=== PATIENT | female | born 1975 | race Caucasian/White ===

== ENCOUNTER 2024-05-05 09:16 | Outpatient (CLI) | payer SELFPAY ==
--- NOTE | 2024-05-05 09:22 | BI_ITS ---
MAMMOGRAPHY - BILATERAL DIAGNOSTIC REASON FOR EXAM: Female, 49 years old. Palpable lump in the right axillary region. PERTINENT HISTORY: Non-contributory. TECHNIQUE: Digital bilateral breast cassie (3D mammographic acquisition) in the CC and MLO projections. 2-D mediolateral oblique (MLO) and craniocaudad (CC) views of both breasts were obtained. CAD: Full Field Digital Mammography with Computer Added Detection was performed. COMPARISON: Comparison is made with prior outside examination dated April 14, 2019. FINDINGS: Breast Composition: The breasts are heterogeneously dense, which may obscure small masses. There are no dominant masses or suspicious calcifications. Stable fat-containing right axillary lymph node. No other significant abnormalities are identified. There has been no significant change since the prior study. BI/DIAG MAMM W/CAD, BILAT IMPRESSION: Stable bilateral diagnostic mammogram. With the patient''s history of a palpable lump in the right axilla, correlation with ultrasound is recommended. ASSESSMENT CATEGORY: BIRADS Category 0: Incomplete. Need additional imaging evaluation. A letter regarding these results will be sent to the patient by the facility within 30 days. Approximately 10% of breast cancers are not detected by mammography. A normal mammogram should not delay biopsy of a clinically suspicious abnormality. Electronically Signed: Elton Gamble MD at 10:34 EDT ,
--- NOTE | 2024-05-05 09:22 | US_ITS ---
STUDY: ULTRASOUND BREAST - RIGHT REASON FOR EXAM: Female, 49 years old. Right axillary palpable lump. TECHNIQUE: Axial and longitudinal images of the RIGHT breast were performed with a high resolution ultrasound transducer. # OF IMAGES: 52 COMPARISON: Comparison is made with prior mammogram done earlier in the day. FINDINGS: RIGHT Breast: The far lateral aspect of the right breast was obtained. The palpable lump corresponds to a 1.9 cm x 2.1 cm x 0.7 cm heterogeneous solid lesion. This most likely represents a lipoma. Biopsy recommended for further evaluation. US/Breast Limited Unilateral IMPRESSION: The palpable lump corresponds to a 1.9 cm x 2.1 cm x 0.7 cm heterogeneous solid lesion. This most likely presents a lipoma although tissue diagnosis is recommended. ASSESSMENT CATEGORY: BIRADS Category 4: Suspicious - Biopsy Should Be Considered. A letter regarding these results will be sent to the patient by the facility within 30 days. Electronically Signed: Elton Gamble MD at 11:07 EDT ,
== END 2024-05-05 23:59 | disposition home or self-care (01) ==
DX: N63.10 Unspecified lump in the right breast, unspecified quadrant (principal)
CPT/HCPCS: 76642; 77062; 77066; G0279